=== PATIENT | female | born 1940 | race Caucasian/White ===

== ENCOUNTER → 2016-10-05 | Outpatient (CLI) | payer MEDICARE | END | disposition home or self-care (01) | LOC: GMAM 10:26 | PROVIDERS: ATTEND Family Medicine | DX: E03.9 Hypothyroidism, unspecified (principal); N39.0 Urinary tract infection, site not specified ==

== ENCOUNTER → 2016-10-12 | Outpatient (CLI) | payer MEDICARE | END | disposition home or self-care (01) | LOC: GMAM 15:07 | PROVIDERS: ATTEND Family Medicine | DX: N39.0 Urinary tract infection, site not specified (principal) ==

== ENCOUNTER → 2017-05-30 | Outpatient (CLI) | payer MEDICARE | END | disposition home or self-care (01) | LOC: GMAM 10:31 | PROVIDERS: ATTEND Family Medicine | DX: E03.9 Hypothyroidism, unspecified (principal) ==

== ENCOUNTER → 2017-11-20 | Outpatient (CLI) | payer MEDICARE | END | disposition home or self-care (01) | LOC: GMAM 11:57 | PROVIDERS: ATTEND Family Medicine | DX: E03.9 Hypothyroidism, unspecified (principal) ==

== ENCOUNTER → 2018-05-16 | Outpatient (CLI) | payer MEDICARE | LOC: GMAJS 10:43 | PROVIDERS: ATTEND Physician Assistant | DX: R30.0 Dysuria (principal) ==

== ENCOUNTER → 2018-06-13 | Outpatient (CLI) | payer MEDICARE | LOC: GMAM 11:04 | PROVIDERS: ATTEND Family Medicine | DX: E03.9 Hypothyroidism, unspecified (principal) ==

== ENCOUNTER → 2018-12-26 | Outpatient (CLI) | payer MEDICARE | LOC: GMAM 10:38 | PROVIDERS: ATTEND Family Medicine | DX: E03.9 Hypothyroidism, unspecified (principal); R73.9 Hyperglycemia, unspecified; I10 Essential (primary) hypertension ==

== ENCOUNTER → 2020-01-21 | Outpatient (CLI) | payer MEDICARE | LOC: GMAM 11:35 | PROVIDERS: ATTEND Family Medicine | DX: E03.9 Hypothyroidism, unspecified (principal); I10 Essential (primary) hypertension; E78.2 Mixed hyperlipidemia ==

== ENCOUNTER → 2020-01-29 | Outpatient (CLI) | payer MEDICARE ==
--- NOTE | 2020-01-30 11:48 | US ---
EXAM DESCRIPTION: Liver: ULTRASOUND. CLINICAL HISTORY: DISORDER OF BILIRUBIN METABOLISM UNSPEC. Previous cholecystectomy. Partial liver resection with removal of cyst in 2005. Not sure which lobe. COMPARISON: Ultrasound and CT of liver and abdomen September and October 2015. TECHNIQUE: Transabdominal scannin-dimensional and Doppler modes. FINDINGS: Gallbladder: Surgically removed. No fluid in the gallbladder fossa. Non-tender with transducer pressure. Common bile duct: caliber 6 mm within normal limits post cholecystectomy. Liver: Increased echogenicity; contour liver capsule smooth where seen. Left lobe not well seen. No fluid around the liver. Intrahepatic biliary ducts normal caliber. Doppler hepatopedal flow portal vein. 7 mm caliber normal at south hepatis. Long axis right lobe 16.3 cm. Pancreas: normal size and echogenicity. Duct not seen. Right kidney: long axis measures 9.9 cm. Normal cortical echogenicity. Normal cortical thickness. No echogenic stones or hydronephrosis. Aorta proximal: 2.1 cm caliber. Normal. IMPRESSION: Prior cholecystectomy. No fluid or tenderness. Common bile duct normal caliber. Prior partial hepatectomy. Left lobe not well seen which may be secondary to prior surgery. Steatosis of the liver but otherwise negative. Pancreas unremarkable. No ascites. Kidney is negative. Normal caliber of the proximal aorta. Electronically signed by: Narseh Olvera MD 01/30/2020 11:46 AM CDT
== END ==
LOC: US 07:53
PROVIDERS: ATTEND Family Medicine
DX: E80.7 Disorder of bilirubin metabolism, unspecified (principal); R53.83 Other fatigue; K76.0 Fatty (change of) liver, not elsewhere classified; Z90.49 Acquired absence of other specified parts of digestive tract; Z98.890 Other specified postprocedural states

== ENCOUNTER → 2020-02-25 | Outpatient (CLI) | payer MEDICARE | LOC: LAB.O 11:25 | PROVIDERS: ATTEND Internal Medicine Gastroenterology | DX: B18.2 Chronic viral hepatitis C (principal) ==

== ENCOUNTER → 2020-07-28 | Outpatient (CLI) | payer MEDICARE | LOC: GMAM 14:08 | PROVIDERS: ATTEND Family Medicine | DX: R30.0 Dysuria (principal); E03.9 Hypothyroidism, unspecified; R73.9 Hyperglycemia, unspecified; I10 Essential (primary) hypertension ==